=== PATIENT | female | born 1960 | race Asian ===

== ENCOUNTER 2024-09-09 05:06 | Emergency (ER) | payer OTHER ==
[~2024-09-09] VITALS: Ht 152.4 cm; Wt 62.0 kg
[2024-09-09 05:10] VITALS: PULSE 100; RESP 16; O2SAT 94
[2024-09-09 05:15] VITALS: BP 134/78; TEMP 37.1; O2SAT 100
[2024-09-09] MEDS: ACETAMINOPHEN 325MG TABLET PO ONE (07:08)
[2024-09-09] MEDS: KETOROLAC 30MG/ML VIAL IM ONE (07:09)
[2024-09-09 10:07] LABS: CREATININE 1.7 mg/dL (0.6-1.0)
[2024-09-09 10:08] LABS: UREA NITROGEN BLOOD 28 mg/dL (9-23)
[2024-09-09 10:10] LABS: PHOSPHORUS 4.8 mg/dL (2.5-4.9)
[2024-09-09 10:24] LABS: BASOPHILS % 0.3 % (0.0-2.0); EOSINOPHILS % 0.7 % (0.0-5.0); HEMATOCRIT. 42.0 % (36.0-48.0); HEMOGLOBIN. 13.9 g/dL (12.0-16.0); LYMPHOCYTES % 20.0 % (20.0-50.0); MEAN PLATELET VOLUME 8.3 fl (7.4-10.4); MONOCYTES % 6.2 % (2.0-8.0); NEUTROPHILS % 72.8 % (40.0-76.0); PLATELET 220 x1000/uL (130-400); RED BLOOD CELL COUNT 4.56 mill/uL (4.2-5.4); RED CELL DISTRIBUTION WIDTH 13.1 % (11.6-14.6)
== END 2024-09-09 11:34 | disposition home or self-care (01) ==
LOC: ER 05:06
DX: G89.29 Other chronic pain (principal); N28.9 Disorder of kidney and ureter, unspecified; M25.571 Pain in right ankle and joints of right foot; I25.10 Atherosclerotic heart disease of native coronary artery without angina pectoris; Z88.0 Allergy status to penicillin; Z92.3 Personal history of irradiation; Z95.5 Presence of coronary angioplasty implant and graft; Z79.899 Other long term (current) drug therapy
CPT/HCPCS: 99285; 93971; 80048; 83735; 84100; 85025; 36415; 73610; 96372; J1885